=== PATIENT | male | born 1970 | race Caucasian/White ===

== ENCOUNTER 2017-03-03 10:10 | Observation (INO) | payer MEDICAID, OTHER ==
[2017-03-03] VITALS (8 sets, daily range): BP systolic 95–122; BP diastolic 67–82; PULSE 94–124; RESP 16–20; TEMP 98.8–100.5; O2SAT 96–98
[~2017-03-03] VITALS: Ht 177.8 cm; Wt 67.9 kg
[~2017-03-03 10:10] MED LIST: BUPR-197 PO; IBUP800T23 PO; LAMO200T PO; SERO50TA4 PO
[2017-03-03] MEDS ORDERED: BUPR100CR PO (10:37)
[2017-03-03] MEDS ORDERED: LAMO100 PO (10:37)
[2017-03-03] MEDS ORDERED: SERO50TA PO (10:37)
[2017-03-03] MEDS ORDERED: ACETAMINOPHEN 500 MG CPLT PO ONE (10:45)
[2017-03-03] MEDS ORDERED: SODIUM CHLOR 0.9% 1000 ML INJ 1,000 ML IV ONE (10:45)
[2017-03-03 11:12] LABS: AUTOMATED NEUTROPHIL # 8.7 TH/MM3 (1.8-7.7); BASOPHIL # 0.5 TH/MM3 (0-0.2); BASOPHIL % 4.1 % (0.0-2.0); EOSINOPHIL # 0.1 TH/MM3 (0-0.4); EOSINOPHIL % 1.1 % (0.0-4.0); HEMATOCRIT 44.2 % (39.0-51.0); LYMPH % 12.8 % (9.0-44.0); LYMPHOCYTE # 1.5 TH/MM3 (1.0-4.8); MEAN CELL VOLUME 92.8 FL (80.0-100.0); MEAN CORPUSCULAR HEMOGLOBIN 31.2 PG (27.0-34.0); MEAN CORPUSCULAR HGB CONC 33.6 % (32.0-36.0); MONO % 9.7 % (0.0-8.0); NEUT % 72.3 % (16.0-70.0); PLATELET COUNT 285 TH/MM3 (150-450); RED BLOOD COUNT 4.76 MIL/MM3 (4.50-5.90); RED CELL DISTRIBUTION WIDTH 12.7 % (11.6-17.2)
[2017-03-03 11:14] LABS: HEMO FLAGS DIFF FINAL
[2017-03-03 11:21] LABS: CHLORIDE 103 MEQ/L (98-107); SODIUM (NA) 138 MEQ/L (136-145)
[2017-03-03 11:26] LABS: ANION GAP 6 MEQ/L (5-15); BICARBONATE 29.2 MEQ/L (21.0-32.0); BLOOD UREA NITROGEN 8 MG/DL (7-18)
[2017-03-03 11:29] LABS: ALT (GPT) 12 U/L (12-78); AST (GOT) 7 U/L (15-37); GLOMERULAR FILTRATION RATE 120 ML/MIN (>89)
[2017-03-03 11:31] LABS: TOTAL BILIRUBIN ADULT 0.6 MG/DL (0.2-1.0)
[2017-03-03 11:32] LABS: ALKALINE PHOSPHATASE 70 U/L (45-117)
--- NOTE | 2017-03-03 11:38 | RADRPT ---
EXAM DATE/TIME: 03/03/2017 10:50 [facility] COMPARISON: No previous studies available for comparison. INDICATIONS : Cough, chest pain, back pain. MEDICAL HISTORY : smoker SURGICAL HISTORY : None. ENCOUNTER: Initial ACUITY: 2 days PAIN SCORE: 10/10 LOCATION: Bilateral chest FINDINGS: PA and lateral views of the chest demonstrate the lungs to be symmetrically aerated without evidence of mass, infiltrate or effusion. The cardiomediastinal contours are unremarkable. Osseous structure s are intact. CONCLUSION: No infiltrates seen. Minimal right basilar atelectasis. Puma Garcia MD on March 03, 2017 at 11:36 Board Certified Radiologist. This report was verified electronically.
[2017-03-03 12:01] LABS: BLOOD, URINE SMALL (NEG); GLUCOSE,URINE NEG (NEG); KETONE, URINE NEG (NEG); NITRITE,URINE NEG (NEG)
[2017-03-03 12:04] LABS: METHOD OF COLLECTION CLEAN CATCH; URINE COLOR YELLOW (YELLW/STRAW)
[2017-03-03 12:05] LABS: COMMENT (UR) CULT NOT INDICATED; CULTURE IF INDICATED CULT NOT INDICATED; SQUAMOUS EPITHELIAL CELL URINE 0-5 /hpf (0-5)
[2017-03-03] MEDS ORDERED: KETOROLAC TROMETHAMINE 30 MG/ML (IVP) VIAL IV PUSH ONE (12:30)
--- NOTE | 2017-03-03 13:16 | PD ---
HPI Chief Complaint: Respiratory Symptoms Time Seen by Provider: 10:36 Travel History International Travel<30 days: No Contact w/Intl Traveler<30days: No Traveled to known affect area: No History of Present Illness HPI This is a 46-year-old male who presents to the emergency department with left- sided chest pain, sharp and stabbing feeling like someone is stabbing and right through the chest radiating to the back, constant, worse with deep breaths, improved with rest. He also has had a fever. He denies any cough. He says his friend recently had walking pneumonia didn't have any other symptoms aside from fever. He denies any burning with urination or abdominal pain or vomiting. He does say that he recently broke his foot about a month ago and he never sought treatment but he did have some swelling of the left foot associated with this. PFSH Past Medical History Bipolar Disorder: Yes Diminished Hearing: No Influenza Vaccination: No ?: Not Social History Alcohol Use: Yes Tobacco Use: Yes Substance Use: No (Pt denies) Allergies-Medications (Allergen,Severity, Reaction): Coded Allergies: No Known Allergies (Unverified , 03/03/17) Reported Meds & Prescriptions Reported Meds & Active Scripts Active Reported Wellbutrin SR 12 HR (Bupropion HCl) 100 Mg Tab 100 Mg PO DAILY Lamictal (Lamotrigine) 100 Mg Tab 100 Mg PO DAILY Seroquel (Quetiapine Fumarate) 50 Mg Tab 50 Mg PO DAILY Review of Systems Except as stated in HPI: all other systems reviewed are Neg Physical Exam Narrative GENERAL: Uncomfortable appearing. SKIN: Focused skin assessment warm and dry. HEAD: Atraumatic. Normocephalic. EYES: Pupils equal and round. No injection or drainage. ENT: Moist mucous membranes NECK: Trachea midline. CARDIOVASCULAR: Regular rate and rhythm. No murmur appreciated. RESPIRATORY: Rales in the left lung base with no increased work of breathing GASTROINTESTINAL: Abdomen soft, non-tender, nondistended. MUSCULOSKELETAL: No obvious deformities. NEUROLOGICAL: Awake and alert. No obvious cranial nerve deficits. Moving all extremities. PSYCHIATRIC: Appropriate mood and affect; insight and judgment normal. Data Data Last Documented VS Vital Signs Date Time Temp Pulse Resp B/P (MAP) Pulse Ox O2 Delivery O2 Flow Rate FiO2 03/03/17 13:48 97 18 95/68 (77) 98 Room Air 03/03/17 11:58 99.8 Orders Orders Complete Blood Count With Diff (03/03/17 10:40) Comprehensive Metabolic Panel (03/03/17 10:40) Chest, Pa & Lat (03/03/17 ) ^ Insert Iv (03/03/17 10:40) Sodium Chlor 0.9% 1000 Ml Inj (Ns 1000 M (03/03/17 10:45) Lactic Acid (03/03/17 10:40) Influenzae A/B Antigen (03/03/17 10:40) Acetaminophen (Tylenol) (03/03/17 10:45) Urinalysis - C+S If Indicated (03/03/17 11:40) Ct Pulmonary Angiogram (03/03/17 ) Ketorolac Inj (Toradol Inj) (03/03/17 12:30) Troponin I (03/03/17 12:26) Electrocardiogram (03/03/17 ) Iohexol 350 Inj (Omnipaque 350 Inj) (03/03/17 13:25) Enoxaparin Inj (Lovenox Inj) (03/03/17 14:30) Admit Order (Ed Use Only) (03/03/17 14:31) Labs Laboratory Tests Test 03/03/17 11:00 03/03/17 11:55 White Blood Count 12.0 TH/MM3 Red Blood Count 4.76 MIL/MM3 Hemoglobin 14.9 GM/DL Hematocrit 44.2 % Mean Corpuscular Volume 92.8 FL Mean Corpuscular Hemoglobin 31.2 PG Mean Corpuscular Hemoglobin Concent 33.6 % Red Cell Distribution Width 12.7 % Platelet Count 285 TH/MM3 Mean Platelet Volume 7.7 FL Neutrophils (%) (Auto) 72.3 % Lymphocytes (%) (Auto) 12.8 % Monocytes (%) (Auto) 9.7 % Eosinophils (%) (Auto) 1.1 % Basophils (%) (Auto) 4.1 % Neutrophils # (Auto) 8.7 TH/MM3 Lymphocytes # (Auto) 1.5 TH/MM3 Monocytes # (Auto) 1.2 TH/MM3 Eosinophils # (Auto) 0.1 TH/MM3 Basophils # (Auto) 0.5 TH/MM3 CBC Comment DIFF FINAL Differential Comment Blood Urea Nitrogen 8 MG/DL Creatinine 0.71 MG/DL Random Glucose 102 MG/DL Total Protein 7.9 GM/DL Albumin 3.4 GM/DL Calcium Level 8.7 MG/DL Alkaline Phosphatase 70 U/L Aspartate Amino Transf (AST/SGOT) 7 U/L Alanine Aminotransferase (ALT/SGPT) 12 U/L Total Bilirubin 0.6 MG/DL Sodium Level 138 MEQ/L Potassium Level 4.0 MEQ/L Chloride Level 103 MEQ/L Carbon Dioxide Level 29.2 MEQ/L Anion Gap 6 MEQ/L Estimat Glomerular Filtration Rate 120 ML/MIN Lactic Acid Level 0.9 mmol/L Troponin I LESS THAN 0.02 NG/ML Urine Collection Type CLEAN CATCH Urine Color YELLOW Urine Turbidity CLEAR Urine pH 6.0 Urine Specific [place] 1.020 Urine Protein NEG mg/dL Urine Glucose (UA) NEG mg/dL Urine Ketones NEG mg/dL Urine Occult Blood SMALL Urine Nitrite NEG Urine Bilirubin NEG Urine Leukocyte Esterase NEG Urine RBC 4-9 /hpf Urine Squamous Epithelial Cells 0-5 /hpf Microscopic Urinalysis Comment CULT NOT INDICATED Urine Collection Time 11:55 [facility] Medical Decision Making Medical Screen Exam Complete: Yes Emergency Medical Condition: Yes Interpretation(s) Tachycardic, temperature is 100.5. Mild leukocytosis Electrolytes are reassuring Last 24 hours Impressions Chest X-Ray 03/03/17 0000 Signed Impressions: Service Date/Time: Friday, March 03, 2017 10:50 - CONCLUSION: No infiltrates seen. Minimal right basilar atelectasis. Puma Garcia MD CT Angiography 03/03/17 0000 Signed Impressions: Service Date/Time: Friday, March 03, 2017 13:19 - CONCLUSION: 1. Bilateral, small to moderate pulmonary emboli. 2. Mild emphysematous changes. 3. Bibasilar atelectatic changes. Daron John MD Differential Diagnosis Pneumonia, bronchitis, viral syndrome, influenza, pulmonary embolus Narrative Course This is a 46-year-old male who presents to the emergency department with left- sided sharp chest pain which is pleuritic. On arrival he was febrile and tachycardic. He improved with IV fluids and Tylenol but his symptoms continued. Labs are obtained which are reassuring. Given the patient's persistent pain CT scan was ordered which demonstrates bilateral pulmonary emboli. [facility] Physician Communication Discussed with Dr. Vincent Diagnosis Primary Impression: Pulmonary embolism, bilateral Admitting Information Admitting Physician Requests: it Joslyn Mills MD Mar 03, 2017 13:16
[2017-03-03] MEDS ORDERED: IOHEXOL 350 MG/ML 10 ML VIAL (for RAD DIAG) IVCONTRAST ONE (13:25)
--- NOTE | 2017-03-03 13:56 | RADRPT ---
EXAM DATE/TIME: 03/03/2017 13:19 [facility] COMPARISON: No previous studies available for comparison. INDICATIONS : Left chest, shoulder and upper back pain. IV CONTRAST: 75 cc Omnipaque 350 (iohexol) IV RADIATION DOSE: 10.10 CTDIvol (mGy) MEDICAL HISTORY : None SURGICAL HISTORY : None. ENCOUNTER: Initial ACUITY: 2 days PAIN SCALE: 10/10 LOCATION: Left chest TECHNIQUE: Volumetric scanning of the chest was performed using a pulmonary embolism protocol MIP images were re constructed. Using automated exposure control and adjustment of the mA and/or kV according to patien t size, radiation dose was kept as low as reasonably achievable to obtain optimal diagnostic quality images. DICOM format image data is available electronically for review and comparison. Follow-up recommendations for detected pulmonary nodules are based at a minimum on nodule size and pa tient risk factors according to Fleischner Society Guidelines. FINDINGS: PULMONARY ARTERIES: Bilateral pulmonary emboli LUNGS: Mild emphysematous changes in the right upper lung. Mild bibasilar airspace disease, likely atelectat ic. PLEURAE: There is no pleural thickening or pleural effusion. MEDIASTINUM: There is good visualization of the great vessels of the middle mediastinum. No evidence of mediastin al or hilar adenopathy/mass. MUSCULOSKELETAL: Within normal limits for patient age. MISCELLANEOUS: The visualized upper abdominal organs demonstrate no acute abnormality. CONCLUSION: 1. Bilateral, small to moderate pulmonary emboli. 2. Mild emphysematous changes. 3. Bibasilar atelectatic changes. Daron John MD on March 03, 2017 at 13:50 Board Certified Radiologist. This report was verified electronically.
[2017-03-03] MEDS ORDERED: ENOXAPARIN SODIUM 80 MG/0.8 ML SYRINGE SQ ONE (14:30)
[2017-03-03] MEDS ORDERED: ACETAMINOPHEN/HYDROcodone 325 MG/5 MG TAB PO PRN (14:45)
[2017-03-03] MEDS ORDERED: MAGNESIUM HYDROXIDE SUSP 30 ML CUP PO PRN (14:45)
[2017-03-03] MEDS ORDERED: LACTULOSE SYRUP 20 GM/30 ML CUP PO PRN (14:45)
[2017-03-03] MEDS ORDERED: SODIUM CHLORIDE 0.9% FLUSH 10 ML FLUSH IV FLUSH PRN (14:45)
[2017-03-03] MEDS ORDERED: NALOXONE HCL 0.4 MG/ML AMP IV PRN (14:45)
[2017-03-03] MEDS ORDERED: BISACODYL 10 MG SUPP RECTAL PRN (14:45)
[2017-03-03] MEDS ORDERED: ACETAMINOPHEN 325 MG TAB PO PRN (14:45)
[2017-03-03] MEDS ORDERED: SENNOSIDES 8.6 MG TAB PO PRN (14:45)
[2017-03-03] MEDS ORDERED: ONDANSETRON HCL 4 MG/2 ML VIAL IVP PRN (14:45)
--- NOTE | 2017-03-03 17:29 | HHI.HP ---
[facility] Service [facility] Primary Care Physician Juan Diego Menjivar M.D. Admission Diagnosis bilateral pulmonary emboli Diagnoses: Travel History International Travel<30 Days: No Contact w/Intl Traveler <30 Da: No Traveled to Known Affected Are: No History of Present Illness This is a pleasant 46-year-old male with past medical history of bipolar disorder, hyperlipidemia who presented to the emergency department complaining of severe sharp left-sided chest pain beginning last night. No alleviating factors. The pain was exacerbated by coughing or by movement. In the emergency department CTA was positive for small bilateral pulmonary embolism. Of note the patient states that one month ago he tripped and stubbed his toe on a concrete step and he is sure he fractured a bone in the foot. Since then he has not been walking around as much. He also noted that several days ago his ankle to his mid calf swelled up considerably and that he feels his foot is still swollen. Patient denies hemoptysis. Patient also had low- grade fever in the emergency department but states he has not noted fever at home. No previous history of DVT at home. 10 point review systems otherwise negative. Past Family Social History Past Medical History Bipolar disorder Hyperlipidemia Reported Medications Allergies Coded Allergies Type Severity Reaction Last Updated Verified No Known Allergies 03/03/17 No Active Scripts Medications Dose Route/Sig Max Daily Dose Days Date Category Wellbutrin SR 12 HR (Bupropion HCl) 100 Mg Tab 100 Mg PO DAILY 03/03/17 Reported Lamictal (Lamotrigine) 100 Mg Tab 100 Mg PO DAILY 03/03/17 Reported Seroquel (Quetiapine Fumarate) 50 Mg Tab 50 Mg PO DAILY 03/03/17 Reported Allergies: Coded Allergies: No Known Allergies (Unverified , 03/03/17) Family History Cousins on the mother's side of the family did have blood clots Social History He smokes about a pack of cigarettes daily. No alcohol or illicit drug use. Physical Exam Vital Signs Vital Signs Date Time Temp Pulse Resp B/P (MAP) Pulse Ox O2 Delivery O2 Flow Rate FiO2 03/03/17 14:41 99.0 96 18 111/79 (90) 96 Room Air 03/03/17 14:41 96 97 Room Air 03/03/17 13:48 97 18 95/68 (77) 98 Room Air 03/03/17 13:30 18 03/03/17 12:32 97 97 Room Air 03/03/17 12:02 18 03/03/17 11:58 99.8 100 18 106/67 (80) 98 Room Air 03/03/17 10:41 100.2 115 18 111/81 (91) 97 Room Air 03/03/17 10:35 117 98 Room Air 03/03/17 10:11 100.5 124 16 107/71 (83) 97 Physical Exam GENERAL: Well-nourished, well-developed lean male patient. SKIN: Warm and dry. HEAD: Normocephalic. EYES: No scleral icterus. No injection or drainage. NECK: Supple, trachea midline. No JVD or lymphadenopathy. CARDIOVASCULAR: Regular rate and rhythm without murmurs, gallops, or rubs. RESPIRATORY: Breath sounds equal bilaterally. No accessory muscle use. GASTROINTESTINAL: Abdomen soft, non-tender, nondistended. EXTREMITIES: Left foot with trace edema. NEUROLOGICAL: Awake, alert, and oriented x 3. Non-focal. Psychiatric: Organized speech and thought processes, no hallucinations. Laboratory Laboratory Tests Test 03/03/17 11:00 03/03/17 11:55 White Blood Count 12.0 Red Blood Count 4.76 Hemoglobin 14.9 Hematocrit 44.2 Mean Corpuscular Volume 92.8 Mean Corpuscular Hemoglobin 31.2 Mean Corpuscular Hemoglobin Concent 33.6 Red Cell Distribution Width 12.7 Platelet Count 285 Mean Platelet Volume 7.7 Neutrophils (%) (Auto) 72.3 Lymphocytes (%) (Auto) 12.8 Monocytes (%) (Auto) 9.7 Eosinophils (%) (Auto) 1.1 Basophils (%) (Auto) 4.1 Neutrophils # (Auto) 8.7 Lymphocytes # (Auto) 1.5 Monocytes # (Auto) 1.2 Eosinophils # (Auto) 0.1 Basophils # (Auto) 0.5 CBC Comment DIFF FINAL Differential Comment Blood Urea Nitrogen 8 Creatinine 0.71 Random Glucose 102 Total Protein 7.9 Albumin 3.4 Calcium Level 8.7 Alkaline Phosphatase 70 Aspartate Amino Transf (AST/SGOT) 7 Alanine Aminotransferase (ALT/SGPT) 12 Total Bilirubin 0.6 Sodium Level 138 Potassium Level 4.0 Chloride Level 103 Carbon Dioxide Level 29.2 Anion Gap 6 Estimat Glomerular Filtration Rate 120 Lactic Acid Level 0.9 Troponin I LESS THAN 0.02 Urine Collection Type CLEAN CATCH Urine Color YELLOW Urine Turbidity CLEAR Urine pH 6.0 Urine Specific [place] 1.020 Urine Protein NEG Urine Glucose (UA) NEG Urine Ketones NEG Urine Occult Blood SMALL Urine Nitrite NEG Urine Bilirubin NEG Urine Leukocyte Esterase NEG Urine RBC 4-9 Urine Squamous Epithelial Cells 0-5 Microscopic Urinalysis Comment CULT NOT INDICATED Urine Collection Time 11:55 Date/Time Source Procedure Growth Status 03/03/17 11:05 Nasal Washing Influenza Types A,B Antigen (TOD) - Final NEGATIVE FOR FLU A AND B ANTIGEN.... Complete Result Diagram: 03/03/17 1100 03/03/17 1100 Imaging Last 24 hours Impressions Chest X-Ray 03/03/17 0000 Signed Impressions: Service Date/Time: Friday, March 03, 2017 10:50 - CONCLUSION: No infiltrates seen. Minimal right basilar atelectasis. Puma Garcia MD CT Angiography 03/03/17 0000 Signed Impressions: Service Date/Time: Friday, March 03, 2017 13:19 - CONCLUSION: 1. Bilateral, small to moderate pulmonary emboli. 2. Mild emphysematous changes. 3. Bibasilar atelectatic changes. MD Wilberto Davis VTE Risk Assessment Capyolanda VTE Risk Assessment: Mod/High Risk (score >= 2) Caprini Risk Assessment Model Point Value = 1 Point Value = 2 Point Value = 3 Point Value = 5 Age 41-60 Minor surgery BMI > 25 kg/m2 Swollen legs Varicose veins or History of unexplained or recurrent spontaneous Oral contraceptives or hormone replacement Sepsis (< 1 month) Serious lung disease, including pneumonia (< 1 month) Abnormal pulmonary function Acute myocardial infarction Congestive heart failure (< 1 month) History of inflammatory bowel disease Medical patient at bed rest Age 61-74 Arthroscopic surgery Major open surgery (> 45 min) Laparoscopic surgery (> 45 min) Malignancy Confined to bed (> 72 hours) Immobilizing plaster cast Central venous access Age >= 75 History of VTE Family history of VTE Factor V Leiden Prothrombin [id number] Lupus anticoagulant Anticardiolipin antibodies Elevated serum homocysteine Heparin-induced thrombocytopenia Other congenital or acquired thrombophilia Stroke (< 1 month) Elective arthroplasty Hip, pelvis, or leg fracture Acute spinal cord injury (< 1 month) Prophylaxis Regimen Total Risk Factor Score Risk Level Prophylaxis Regimen 0-1 Low Early ambulation 2 Moderate Order ONE of the following: *Sequential Compression Device (SCD) *Heparin 5000 units SQ BID 3-4 Higher Order ONE of the following medications: *Heparin 5000 units SQ TID *Enoxaparin/Lovenox 40 mg SQ daily (WT < 150 kg, CrCl > 30 mL/min) *Enoxaparin/Lovenox 30 mg SQ daily (WT < 150 kg, CrCl > 10-29 mL/min) *Enoxaparin/Lovenox 30 mg SQ BID (WT < 150 kg, CrCl > 30 mL/min) AND/OR *Sequential Compression Device (SCD) 5 or more Highest Order ONE of the following medications: *Heparin 5000 units SQ TID (Preferred with Epidurals) *Enoxaparin/Lovenox 40 mg SQ daily (WT < 150 kg, CrCl > 30 mL/min) *Enoxaparin/Lovenox 30 mg SQ daily (WT < 150 kg, CrCl > 10-29 mL/min) *Enoxaparin/Lovenox 30 mg SQ BID (WT < 150 kg, CrCl > 30 mL/min) AND *Sequential Compression Device (SCD) Assessment and Plan Problem List: (1) Pulmonary embolism, bilateral ICD Code: I26.99 - Other pulmonary embolism without acute cor pulmonale Status: Acute Assessment and Plan -Bilateral small to moderate-sized pulmonary emboli. He injured his foot about a month ago and has been relatively immobile. This is possibly a provoked DVT, will obtain a foot x-ray and bilateral Doppler ultrasound. The patient received Lovenox in the emergency department. We'll start him on Xarelto. Observe overnight. Patient will be given pain medicine. -Bipolar disorder. Resume home meds. I will check a coag profile to be follow- up with his primary care physician given that his cousins also suffered from DVT. -Hyperlipidemia diet controlled as per the patient. -Tobacco use. Cessation counseled. -Low-grade fever. Influenza wash negative chest x-ray negative. UA negative. Observe. Diana Vincent MD Mar 03, 2017 17:29
[2017-03-03] MEDS: ACETAMINOPHEN/HYDROcodone 325 MG/10 MG TAB PO PRN ×2 (18:14→22:40)
--- NOTE | 2017-03-03 18:18 | RADRPT ---
EXAM DATE/TIME: 03/03/2017 17:48 [facility] COMPARISON: FOOT LEFT COMPLETE ([id number]), July 29, 2015, 11:08. INDICATIONS : Left foot pain starting today with no known injury MEDICAL HISTORY : Prev. fracture to left metatarsals SURGICAL HISTORY : None. ENCOUNTER: Initial ACUITY: 1 day PAIN SCORE: 5/10 LOCATION: Left entire foot FINDINGS: Three-view examination of the foot demonstrates normal alignment of the osseous structures of the for efoot. On the oblique view, there is a lucent area in the distal tuft of the 1st digit suggesting a fracture. This is only seen on the oblique view. There is flattening of the head of the 2nd and 3rd metatarsal bones, unchanged from prior. No radiopaque foreign body seen. No significant soft tissu e swelling CONCLUSION: Findings suggest a fracture to the distal tuft of the 1st digit distal phalanx, only seen on one view . Otherwise negative exam. Puma Garcia MD on March 03, 2017 at 18:15 Board Certified Radiologist. This report was verified electronically.
[2017-03-03] MEDS: KETOROLAC TROMETHAMINE 30 MG/ML (IVP) VIAL IVP PRN (19:59)
[2017-03-03] MEDS: RIVAROXABAN 15 MG TAB PO SCH (19:59)
[2017-03-03] MEDS: DOCUSATE SODIUM 50 MG/SENNA 8.6 MG TAB PO SCH (19:59)
[2017-03-03] MEDS: SODIUM CHLORIDE 0.9% FLUSH 10 ML FLUSH IV FLUSH SCH (20:01)
[2017-03-03] MEDS ORDERED: QUEtiapine FUMARATE 25 MG TAB PO ONE (20:15)
[2017-03-04] VITALS: BP 92/58; PULSE 91; RESP 20; TEMP 98; O2SAT 96
[2017-03-04 04:00] VITALS: BP 93/57; PULSE 105; RESP 20; TEMP 99.9; O2SAT 95
[2017-03-04 06:03] LABS: AUTOMATED NEUTROPHIL # 7.4 TH/MM3 (1.8-7.7); BASOPHIL # 0.1 TH/MM3 (0-0.2); BASOPHIL % 0.5 % (0.0-2.0); EOSINOPHIL # 0.2 TH/MM3 (0-0.4); EOSINOPHIL % 1.7 % (0.0-4.0); HEMATOCRIT 37.7 % (39.0-51.0); HEMO FLAGS DIFF FINAL; LYMPH % 15.4 % (9.0-44.0); LYMPHOCYTE # 1.6 TH/MM3 (1.0-4.8); MEAN CELL VOLUME 92.2 FL (80.0-100.0); MEAN CORPUSCULAR HEMOGLOBIN 31.3 PG (27.0-34.0); MEAN CORPUSCULAR HGB CONC 33.9 % (32.0-36.0); MONO % 9.2 % (0.0-8.0); NEUT % 73.2 % (16.0-70.0); PLATELET COUNT 235 TH/MM3 (150-450); RED BLOOD COUNT 4.09 MIL/MM3 (4.50-5.90); RED CELL DISTRIBUTION WIDTH 12.4 % (11.6-17.2); WHITE BLOOD COUNT 10.3 TH/MM3 (4.0-11.0)
[2017-03-04 06:12] LABS: POTASSIUM 3.9 MEQ/L (3.5-5.1)
[2017-03-04 06:19] LABS: BICARBONATE 27.5 MEQ/L (21.0-32.0)
[2017-03-04 08:49] VITALS: BP 93/58; PULSE 102; RESP 15; TEMP 99.1; O2SAT 92
[2017-03-04] MEDS: SODIUM CHLORIDE 0.9% FLUSH 10 ML FLUSH IV FLUSH SCH (09:00)
[2017-03-04] MEDS: DOCUSATE SODIUM 50 MG/SENNA 8.6 MG TAB PO SCH (09:00)
[2017-03-04] MEDS ORDERED: HYDR-3516 PO (09:13)
[2017-03-04] MEDS ORDERED: XARE20TA PO (09:13)
--- NOTE | 2017-03-04 09:15 | RADRPT ---
EXAM DATE/TIME: 03/04/2017 08:14 [facility] COMPARISON: No previous studies available for comparison. INDICATIONS : Bilateral leg swelling. Pulmonary embolism. MEDICAL HISTORY : Hypercholesterolemia. Hyperlipidemia. . Headache. Cardiac disorders. Bipolar disorder. Depression. Anxiety. Tobacco use. SURGICAL HISTORY : None. ENCOUNTER: Initial ACUITY: 2 day PAIN SCORE: 0/10 LOCATION: Bilateral leg. TECHNIQUE: Venous ultrasound of the left and right leg was performed from the inguinal ligament to the proximal calf. Real-time, color Doppler and spectral tracing, compression and augmentation techniques were us ed. FINDINGS: RIGHT LEG: There is normal compressibility of the deep venous system from the inguinal region to the proximal ca lf. No echogenic clot is seen in the lumen of the common femoral, femoral, popliteal, and posterior tibial veins. There is a normal response of the venous system to proximal and distal augmentation an d respiration. LEFT LEG: There is normal compressibility of the deep venous system from the inguinal region to the proximal ca lf. No echogenic clot is seen in the lumen of the common femoral, femoral, popliteal, and posterior tibial veins. There is a normal response of the venous system to proximal and distal augmentation an d respiration. CONCLUSION: Normal examination. Emily Omer MD on March 04, 2017 at 9:13 Board Certified Radiologist. This report was verified electronically.
--- NOTE | 2017-03-04 09:46 | HHI.PR ---
Subjective Remarks Patient has significant left chest wall pain with muscle spasm, is anxious. Also had small amount of hemoptysis last night. Objective Vitals Vital Signs Date Time Temp Pulse Resp B/P (MAP) Pulse Ox O2 Delivery O2 Flow Rate FiO2 03/04/17 08:49 99.1 102 15 93/58 (70) 92 03/04/17 04:00 99.9 105 20 93/57 (69) 95 03/04/17 00:00 98.0 91 20 92/58 (69) 96 03/03/17 23:00 107 03/03/17 20:00 98.8 94 20 108/71 (83) 97 03/03/17 17:15 98.8 102 18 122/82 (95) 97 03/03/17 14:41 99.0 96 18 111/79 (90) 96 Room Air 03/03/17 14:41 96 97 Room Air 03/03/17 13:48 97 18 95/68 (77) 98 Room Air 03/03/17 13:30 18 03/03/17 12:32 97 97 Room Air 03/03/17 12:02 18 03/03/17 11:58 99.8 100 18 106/67 (80) 98 Room Air 03/03/17 10:41 100.2 115 18 111/81 (91) 97 Room Air 03/03/17 10:35 117 98 Room Air 03/03/17 10:11 100.5 124 16 107/71 (83) 97 I/O 03/03/17 03/03/17 03/03/17 03/04/17 03/04/17 03/04/17 07:00 15:00 23:00 07:00 15:00 23:00 Intake Total 1000 ml 660 ml 360 ml Output Total 300 ml Balance 700 ml 660 ml 360 ml Intake Oral 660 ml 360 ml IV Total 1000 ml Output Urine Total 300 ml # Voids 1 4 # Bowel Movements 0 Result Diagram: 03/04/1751903/04/17519 Objective Remarks GENERAL: Well-nourished, well-developed lean male patient. SKIN: Warm and dry. HEAD: Normocephalic. EYES: No scleral icterus. No injection or drainage. NECK: Supple, trachea midline. No JVD or lymphadenopathy. CARDIOVASCULAR: Regular rate and rhythm without murmurs, gallops, or rubs. RESPIRATORY: Breath sounds equal bilaterally. No accessory muscle use. GASTROINTESTINAL: Abdomen soft, non-tender, nondistended. EXTREMITIES: Left foot with trace edema, discoloration of left hallux nail bed. NEUROLOGICAL: Awake, alert, and oriented x 3. Non-focal. Psychiatric: Organized speech and thought processes, no hallucinations. A/P Problem List: (1) Pulmonary embolism, bilateral ICD Code: I26.99 - Other pulmonary embolism without acute cor pulmonale Status: Acute Assessment and Plan -Bilateral small to moderate-sized pulmonary emboli. He injured his foot about a month ago and has been relatively immobile; xray obtained shows possible fracture of the distal phalanx of the great toe, nondisplaced - I reviewed the images myself. This is a provoked DVT. bilateral Doppler ultrasound negative for DVT. The patient received Lovenox in the emergency department. We'll start him on Xarelto. He has been stable overnight. Patient will be given pain medicine and xarelto discharge. -possible fracture of the distal phalanx of the great toe, nondisplaced - discussed with [employer] communications billing analyst Dr. Chacko - give postop shoe, WBAT. -Bipolar disorder. Resume home meds. I will check a hypercoag panel to be follow-up with his primary care physician. -Hyperlipidemia diet controlled as per the patient. -Tobacco use. Cessation counseled. -Low-grade fever, resolved. Influenza wash negative chest x-ray negative. UA negative. DC home today with pain medication and xarelto prescription. F/u with PCP in 1 week. Diana Vincent MD Mar 04, 2017 09:46
[2017-03-04] MEDS ORDERED: CYCL5TAB PO (09:47)
[2017-03-04] MEDS: ACETAMINOPHEN/HYDROcodone 325 MG/10 MG TAB PO PRN (09:48)
[2017-03-04] MEDS: KETOROLAC TROMETHAMINE 30 MG/ML (IVP) VIAL IVP PRN (09:48)
[2017-03-04] MEDS: RIVAROXABAN 15 MG TAB PO SCH (09:48)
[2017-03-04] MEDS ORDERED: CYCLOBENZAPRINE HCL 10 MG TAB PO ONE (10:00)
[2017-03-04 11:25] VITALS: RESP 18
--- NOTE | 2017-03-04 13:00 | EKG ---
Date Performed: 03/03/2017 Time Performed: 12:34:15 PTAGE: 46 years EKG: Sinus rhythm INCOMPLETE RIGHT BUNDLE BRANCH BLOCK BORDERLINE ECG NO PREVIOUS TRACING DOCTOR: Bryn Hdz Interpretating Date/Time 03/04/2017 12:51:34
== END 2017-03-04 12:01 | disposition home or self-care (01) ==
LOC: PHED 10:10 → INTOOBSV 14:32 → PHEDA 14:32 → PH3A 17:07
PROVIDERS: ADMIT Family Medicine; ATTEND Family Medicine
DX: I26.99 Other pulmonary embolism without acute cor pulmonale (principal); R94.31 Abnormal electrocardiogram [ECG] [EKG]; M62.838 Other muscle spasm; F17.210 Nicotine dependence, cigarettes, uncomplicated
CPT/HCPCS: 71020; 71275; 73630; 80048; 80053; 81001; 83605; 84484; 85025; 87804; 93005; 93970; 96361; 96372; 96374; 96376; 99285; G0378; J1650; J1885; J7030; L3260; Q9967